=== PATIENT | male | born 1970 | race Caucasian/White ===

== ENCOUNTER 2019-01-13 14:50 | Emergency (ER) | payer OTHER ==
[~2019-01-13] VITALS: Ht 170.2 cm; Wt 104.3 kg
[~2019-01-13 14:50] MED LIST: AMBIEN 10 MG TA10 MG PO; LISINOPRIL20 MG PO; NORVASC5 MG PO; PROTONIX40 M1 PO; XANAX XR2 MG PO
[2019-01-13] MEDS ORDERED: ZYRTEC10 M4 PO (15:02)
[2019-01-13] MEDS ORDERED: VITAMIN B12-FO1 EAC1 PO (15:02)
[2019-01-13] MEDS ORDERED: VITAMIN B COMP1 EACH PO (15:02)
[2019-01-13] MEDS ORDERED: VITAMIN D35000 UNIT PO (15:03)
[2019-01-13] MEDS ORDERED: ASPIR 8181 M1 PO (15:03)
[2019-01-13] MEDS ORDERED: LEXAPRO 10 MG T10 M1 PO (15:03)
[2019-01-13 15:32] LABS: ABSOLUTE BASOPHILS 0.1 thou/uL (0.0-0.2); ABSOLUTE EOSINOPHILS 0.1 thou/uL (0.0-0.7); ABSOLUTE LYMPHOCYTES 2.1 thou/uL (0.8-5.3); ABSOLUTE MONOCYTES 0.6 thou/uL (0.0-1.2); ABSOLUTE NEUTROPHILS 5.9 thou/uL (1.6-8.1); BASOPHILS 0.6 %; EOSINOPHILS 1.5 %; HEMATOCRIT 50.5 % (42.0-52.0); HEMOGLOBIN 17.8 gm/dL (14.0-18.0); LYMPHOCYTES 23.7 %; MCH 31.5 pg (26.0-34.0); MCHC 35.2 g/dL (28.0-37.0); MCV 89.6 fL (80.0-100.0); MONOCYTES 6.7 %; MPV 7.3 fl. (7.2-11.1); NUCLEATED RBCS 0 /100WBC; PLATELET COUNT* 257 thou/uL (150-400); POLYS 67.5 %; RBC 5.64 mil/uL (4.50-6.00); RDW-CV 13.2 % (10.5-14.5); WBC 8.7 thou/uL (4.0-11.0)
[2019-01-13 15:37] LABS: ANION GAP 9 mmol/L (7-16); BUN 16 mg/dL (7-18); CALCIUM 9.1 mg/dL (8.5-10.1); CHLORIDE 100 mmol/L (98-107); CO2 30 mmol/L (21-32); CREATININE 0.9 mg/dL (0.6-1.3); GLUCOSE 90 mg/dL (70-99); POTASSIUM 3.8 mmol/L (3.5-5.1); SODIUM 139 mmol/L (136-145)
[2019-01-13 15:46] LABS: ALBUMIN 4.3 g/dL (3.4-5.0); ALKALINE PHOSPHATASE 65 U/L (46-116); SGOT 42 U/L (15-37); SGPT 101 U/L (30-65); TOTAL BILIRUBIN 0.9 mg/dL (<0.1-1.0); TROPONIN-I LEVEL <0.06 ng/mL (<0.06)
[2019-01-13] MEDS ORDERED: LISINOPRIL10 MG PO (17:41)
[2019-01-13 18:14] VITALS: BP 157/97
--- NOTE | 2019-01-14 10:47 | EKG ---
[place] [address] ELECTROCARDIOGRAM REPORT Name: SUMMER DEVI [id number] Admission: 01/13/19 Attend Phys: Discharge: 01/13/19 Date of : 68 Report #: [id number] THIS REPORT FOR: //name// [facility] ED Test Date: 2019-01-13 Test Time: 15:31:28 Pat Name: SUMMER DEVI Department: Room: Gender: M Team Guide: MADONNA : 1970 Requested By: Reyes Iglesias Order Number: [id number] MD: Elvis Richards Measurements Intervals [place] Rate: 83 P: 15 NE: 172 QRS: -8 QRSD: 107 T: 29 QT: 384 QTc: 452 Interpretive Statements Sinus rhythm Baseline wander in lead(s) V4 No previous ECG available for comparison Electronically Signed On 01-14-2019 10:46:59 CDT by Elvis Richards [email or web address] <ELECTRONICALLY SIGNED> By: Elvis Richards MD, FAC 01/14/19 1046 1531 1531 Elvis Richards MD, FACC /EPI
[2019-01-16] MEDS ORDERED: NORVASC10 MG PO (09:25)
== END 2019-01-13 18:18 | disposition home or self-care (01) ==
LOC: M.ERS 14:50
PROVIDERS: Nurse Practitioner Family
DX: I10 Essential (primary) hypertension (principal); Z90.49 Acquired absence of other specified parts of digestive tract; Z87.442 Personal history of urinary calculi; Z98.890 Other specified postprocedural states

== ENCOUNTER 2020-05-11 20:18 | Emergency (ER) | payer OTHER ==
[~2020-05-11] VITALS: Ht 172.7 cm; Wt 104.3 kg
[~2020-05-11 20:18] MED LIST changes: +ASPIR 8181 M1 PO; +LEXAPRO 10 MG T10 M1 PO; +LISINOPRIL10 MG PO; +NORVASC10 MG PO; +VITAMIN B COMP1 EACH PO; +VITAMIN B12-FO1 EAC1 PO; +VITAMIN D35000 UNIT PO; +ZYRTEC10 M4 PO
[2020-05-11] MEDS ORDERED: METFORMIN HCL500 M3 PO (20:28)
[2020-05-11 20:31] LABS: URINE BILIRUBIN NEGATIVE (Negative); URINE BLOOD NEGATIVE (Negative); URINE CLARITY CLEAR; URINE COLOR YELLOW; URINE GLUCOSE-RANDOM NEGATIVE (Negative); URINE KETONES NEGATIVE (Negative); URINE LEUKOCYTES-REFLEX NEGATIVE (Negative); URINE NITRITE-REFLEX NEGATIVE (Negative); URINE PROTEIN NEGATIVE (Negative); URINE SPECIFIC GRAVITY >= 1.030 (1.005-1.030); URINE UROBILINOGEN 0.2 E.U./dl (0.2-1.0)
[2020-05-11 20:41] LABS: ABSOLUTE BASOPHILS 0.1 thou/uL (0.0-0.2); ABSOLUTE EOSINOPHILS 0.2 thou/uL (0.0-0.7); ABSOLUTE LYMPHOCYTES 1.9 thou/uL (0.8-5.3); ABSOLUTE MONOCYTES 0.6 thou/uL (0.0-1.2); ABSOLUTE NEUTROPHILS 7.4 thou/uL (1.6-8.1); BASOPHILS 0.8 %; EOSINOPHILS 1.6 %; HEMATOCRIT 45.3 % (42.0-52.0); HEMOGLOBIN 15.9 gm/dL (14.0-18.0); LYMPHOCYTES 18.8 %; MCH 31.3 pg (26.0-34.0); MCV 89.3 fL (80.0-100.0); MONOCYTES 5.8 %; NUCLEATED RBCS 0 /100WBC; PLATELET COUNT* 291 thou/uL (150-400); RBC 5.08 mil/uL (4.50-6.00); RDW-CV 12.8 % (10.5-14.5); WBC 10.1 thou/uL (4.0-11.0)
[2020-05-11 20:52] LABS: CALCIUM 9.2 mg/dL (8.5-10.1); CREATININE 1.1 mg/dL (0.6-1.3); POTASSIUM 3.9 mmol/L (3.5-5.1)
[2020-05-11 20:53] LABS: PROTIME 10.6 Seconds (9.20-11.50)
[2020-05-11 21:02] LABS: ALBUMIN 4.1 g/dL (3.4-5.0); TOTAL BILIRUBIN 0.5 mg/dL (<0.1-1.0); TOTAL PROTEIN 7.7 g/dL (6.4-8.2)
[2020-05-11] MEDS ORDERED: HYDROCODON-ACE1 EAC8 PO (22:14)
[2020-05-11] MEDS ORDERED: ZOFRAN ODT4 MG PO (22:14)
[2020-05-11 22:21] VITALS: BP 132/76
== END 2020-05-11 22:23 | disposition home or self-care (01) ==
LOC: M.ERS 20:18
PROVIDERS: Emergency Medicine
DX: R10.31 Right lower quadrant pain (principal); R19.7 Diarrhea, unspecified; I10 Essential (primary) hypertension; Z87.442 Personal history of urinary calculi; Z90.49 Acquired absence of other specified parts of digestive tract; Z98.890 Other specified postprocedural states; Z79.899 Other long term (current) drug therapy; Z79.82 Long term (current) use of aspirin